=== PATIENT | female | born 1965 | race Caucasian/White ===

== ENCOUNTER → 2016-12-22 | Outpatient (CLI) | payer OTHER ==
[~2016-12-22] MED LIST: CLARITIN10 MG PO; COZAAR100 MG PO; ENBREL50 MG/ML SC; FIORICET 325 MG1 TAB PO; IMITREX; IRON; MULTIVITAMIN FO1 CAP PO; OMEPRAZOLE; PREDNISONE5 MG PO; PRILOSEC20 MG PO; PROGRAF; VASOTEC2.5 MG PO; VITAMINS
== END | disposition home or self-care (01) ==
LOC: US 13:54
DX: E04.1 Nontoxic single thyroid nodule (principal)

== ENCOUNTER → 2017-06-30 | Outpatient (CLI) | payer MEDICARE ==
[2017-06-30 09:14] LABS: BASO # 0.1 10*3/uL (0.0-0.1); BASO % 1.2 % (0.0-1.0); EOS # 0.2 10*3/uL (0.0-0.4); EOS % 5.2 % (1.0-4.0); HEMATOCRIT 37.8 % (37.0-47.0); HEMOGLOBIN 12.4 g/dl (12.0-16.0); LYMPH # 1.4 10*3/uL (1.3-4.4); LYMPH % 32.4 % (27.0-41.0); MEAN CELL VOLUME 92.4 fl (81.0-99.0); MEAN CORPUSCULAR HGB 30.3 pg (27.0-31.0); MEAN CORPUSCULAR HGB CONC 32.8 g/dl (33.0-37.0); MEAN PLATELET VOLUME 9.3 fl (9.6-12.3); MONO # 0.3 10*3/uL (0.1-1.0); MONO % 6.2 % (3.0-9.0); NEUT # 2.3 10*3/uL (2.3-7.9); NEUT % 54.8 % (47.0-73.0); PLATELET COUNT AUTOMATED 263 10*3/uL (130-400); RED BLOOD COUNT 4.09 10*6/uL (4.10-5.10); RED CELL DISTRI WIDTH 12.1 % (0-14.5); WHITE BLOOD COUNT 4.2 10*3/uL (4.8-10.8)
[2017-06-30 09:43] LABS: ALBUMIN 3.6 gm/dl (3.1-4.5); CREATININE 1.7 mg/dL (0.55-1.02); POTASSIUM 4.6 mmol/L (3.5-5.1); TOTAL PROTEIN 7.5 gm/dL (6.4-8.2)
[2017-07-01 10:04] LABS: CREATININE,URINE 66.7 mg/dL (Not Estab.); MICRO ALBUMIN/CRE RATIO 1739.9 (0.0-30.0)
== END | disposition home or self-care (01) ==
LOC: LAB 08:50
DX: Z01.89 Encounter for other specified special examinations (principal); M08.00 Unspecified juvenile rheumatoid arthritis of unspecified site; I12.9 Hypertensive chronic kidney disease with stage 1 through stage 4 chronic kidney disease, or unspecified chronic kidney disease; N18.3 Chronic kidney disease, stage 3 (moderate); Z96.642 Presence of left artificial hip joint

== ENCOUNTER → 2017-07-28 | Outpatient (CLI) | payer MEDICARE ==
[2017-07-29 05:06] LABS: RBC, FOLATE HEMATOCRIT 34.9 % (34.0-46.6)
== END | disposition home or self-care (01) ==
LOC: LAB 15:12
PROVIDERS: Internal Medicine
DX: N18.3 Chronic kidney disease, stage 3 (moderate) (principal); R89.9 Unspecified abnormal finding in specimens from other organs, systems and tissues; R80.1 Persistent proteinuria, unspecified; E78.00 Pure hypercholesterolemia, unspecified

== ENCOUNTER → 2017-08-11 | Outpatient (CLI) | payer MEDICARE ==
[2017-08-11 13:27] LABS: BILIRUBIN NEGATIVE (NEGATIVE); BLOOD 2+ (NEGATIVE); CLARITY CLEAR (CLEAR); COLOR YELLOW (YELLOW); GLUCOSE NEGATIVE (NEGATIVE); KETONE NEGATIVE (NEGATIVE); LEUKO ESTERASE NEGATIVE (NEGATIVE); NITRITE NEGATIVE (NEGATIVE); UROBILINOGEN 0.2 E.U./dl (0.2-1.0)
[2017-08-11 13:30] LABS: HEMATOCRIT 32.3 % (37.0-47.0); HEMOGLOBIN 10.8 g/dl (12.0-16.0)
[2017-08-11 13:39] LABS: WBC 0-2 wbc/hpf (0-5)
[2017-08-11 13:55] LABS: CREATININE 1.61 mg/dL (0.55-1.02); PHOSPHOROUS 3.9 mg/dL (2.5-4.9); POTASSIUM 4.6 mmol/L (3.5-5.1)
[2017-08-11 15:58] LABS: VITAMIN D, 25-HYDROXY 80.3 ng/mL (30-100)
[2017-08-11 15:59] LABS: PTH INTACT 96.6 pg/mL (14.0-72.0)
[2017-08-12 09:08] LABS: CREATININE,URINE 35.4 mg/dL (Not Estab.); MICRO ALBUMIN/CRE RATIO 2211.6 (0.0-30.0)
== END | disposition home or self-care (01) ==
LOC: LAB 12:46
PROVIDERS: Internal Medicine Nephrology
DX: N18.3 Chronic kidney disease, stage 3 (moderate) (principal); Z79.899 Other long term (current) drug therapy

== ENCOUNTER → 2017-08-28 | Outpatient (CLI) | payer MEDICARE ==
[2017-08-28 10:01] LABS: ALBUMIN 3.6 gm/dl (3.1-4.5); POTASSIUM 4.7 mmol/L (3.5-5.1)
[2017-08-28 10:11] LABS: CREATININE 1.79 mg/dL (0.55-1.02); TOTAL PROTEIN 7.3 gm/dL (6.4-8.2)
[2017-08-29 10:05] LABS: MICRO ALBUMIN/CRE RATIO 1093.5 (0.0-30.0)
== END | disposition home or self-care (01) ==
LOC: LAB 09:02
PROVIDERS: Internal Medicine Nephrology
DX: E78.2 Mixed hyperlipidemia (principal); N18.3 Chronic kidney disease, stage 3 (moderate); R89.9 Unspecified abnormal finding in specimens from other organs, systems and tissues; N28.9 Disorder of kidney and ureter, unspecified

== ENCOUNTER → 2017-10-20 | Outpatient (CLI) | payer MEDICARE | END | disposition home or self-care (01) | LOC: US 09:26 | DX: N13.30 Unspecified hydronephrosis (principal); N18.3 Chronic kidney disease, stage 3 (moderate) ==

== ENCOUNTER → 2017-11-13 | Outpatient (CLI) | payer MEDICARE ==
[2017-11-13 12:57] LABS: CREATININE 1.98 mg/dL (0.55-1.02); POTASSIUM 4.6 mmol/L (3.5-5.1)
[2017-11-14 10:03] LABS: CREATININE,URINE 49.9 mg/dL (Not Estab.); MICRO ALBUMIN/CRE RATIO 1624.4 (0.0-30.0)
== END | disposition home or self-care (01) ==
LOC: LAB 11:50
PROVIDERS: Internal Medicine Nephrology
DX: N18.3 Chronic kidney disease, stage 3 (moderate) (principal)

== ENCOUNTER → 2017-12-15 | Outpatient (CLI) | payer MEDICARE | END | disposition home or self-care (01) | LOC: CT 12-13 09:00 | DX: N28.1 Cyst of kidney, acquired (principal); N13.30 Unspecified hydronephrosis; R79.89 Other specified abnormal findings of blood chemistry; N18.3 Chronic kidney disease, stage 3 (moderate); N13.9 Obstructive and reflux uropathy, unspecified; N21.1 Calculus in urethra; Z96.642 Presence of left artificial hip joint ==

== ENCOUNTER → 2018-01-05 | Outpatient (CLI) | payer MEDICARE ==
[2018-01-05 11:20] LABS: BILIRUBIN NEGATIVE (NEGATIVE); BLOOD 2+ (NEGATIVE); CLARITY CLEAR (CLEAR); COLOR YELLOW (YELLOW); GLUCOSE NEGATIVE (NEGATIVE); KETONE NEGATIVE (NEGATIVE); LEUKO ESTERASE NEGATIVE (NEGATIVE); NITRITE NEGATIVE (NEGATIVE); UROBILINOGEN 0.2 E.U./dl (0.2-1.0)
[2018-01-05 11:43] LABS: CREATININE 1.92 mg/dL (0.55-1.02); POTASSIUM 5.1 mmol/L (3.5-5.1)
[2018-01-06 09:06] LABS: CREATININE,URINE 28.6 mg/dL (Not Estab.); MICRO ALBUMIN/CRE RATIO 2087.8 (0.0-30.0)
== END | disposition home or self-care (01) ==
LOC: LAB 10:27 → US 10:30
PROVIDERS: Internal Medicine Nephrology
DX: E04.2 Nontoxic multinodular goiter (principal); E04.1 Nontoxic single thyroid nodule; N18.3 Chronic kidney disease, stage 3 (moderate); Z79.899 Other long term (current) drug therapy

== ENCOUNTER → 2018-01-08 | Outpatient (CLI) | payer MEDICARE | END | disposition home or self-care (01) | LOC: NM 11:00 | DX: N13.30 Unspecified hydronephrosis (principal); N19 Unspecified kidney failure ==

== ENCOUNTER → 2018-01-13 | Outpatient (CLI) | payer MEDICARE ==
[2018-01-13 11:29] LABS: BASO # 0.1 10*3/uL (0.0-0.1); BASO % 0.9 % (0.0-1.0); EOS # 0.1 10*3/uL (0.0-0.4); EOS % 2.5 % (1.0-4.0); HEMATOCRIT 38.3 % (37.0-47.0); HEMOGLOBIN 12.6 g/dl (12.0-16.0); LYMPH # 1.2 10*3/uL (1.3-4.4); LYMPH % 21.4 % (27.0-41.0); MEAN CELL VOLUME 92.1 fl (81.0-99.0); MEAN CORPUSCULAR HGB 30.3 pg (27.0-31.0); MEAN CORPUSCULAR HGB CONC 32.9 g/dl (33.0-37.0); MEAN PLATELET VOLUME 9.4 fl (9.6-12.3); MONO # 0.3 10*3/uL (0.1-1.0); MONO % 4.7 % (3.0-9.0); NEUT # 3.9 10*3/uL (2.3-7.9); NEUT % 70.3 % (47.0-73.0); PLATELET COUNT AUTOMATED 297 10*3/uL (130-400); RED BLOOD COUNT 4.16 10*6/uL (4.10-5.10); RED CELL DISTRI WIDTH 12.4 % (0-14.5); WHITE BLOOD COUNT 5.6 10*3/uL (4.8-10.8)
[2018-01-13 11:34] LABS: BILIRUBIN NEGATIVE (NEGATIVE); BLOOD 2+ (NEGATIVE); CLARITY CLEAR (CLEAR); COLOR YELLOW (YELLOW); GLUCOSE NEGATIVE (NEGATIVE); KETONE NEGATIVE (NEGATIVE); LEUKO ESTERASE NEGATIVE (NEGATIVE); NITRITE NEGATIVE (NEGATIVE); UROBILINOGEN 0.2 E.U./dl (0.2-1.0)
[2018-01-13 11:47] LABS: BACTERIA TRACE; EPITHELIAL CELLS 0-2; RBC 21-30 rbc/hpf (0-2); WBC 0-2 wbc/hpf (0-5)
[2018-01-13 11:59] LABS: CREATININE 2.08 mg/dL (0.55-1.02); POTASSIUM 4.3 mmol/L (3.5-5.1)
[2018-01-13 14:09] LABS: FERRITIN 100.1 ng/mL (10.0-291.0)
[2018-01-14 04:05] LABS: TOTAL PROTEIN, SERUM 7.2 g/dL (6.0-8.5)
[2018-01-14 06:35] LABS: CREATININE,URINE 80.1 mg/dL (Not Estab.); MICRO ALBUMIN/CRE RATIO 1300.1 (0.0-30.0)
[2018-01-14 07:06] LABS: COMPLEMENT C4 001834 37 mg/dL (14-44); IMMUNOGLOBULIN G, QNT 869 mg/dL (700-1600); IMMUNOGLOBULIN M, QNT 128 mg/dL (26-217); RHEUMATOID ARTHRITIS FACTOR 15.7 IU/mL (0.0-13.9)
[2018-01-15 16:10] LABS: A/G RATIO 1.1 (0.7-1.7); ALBUMIN 3.7 g/dL (2.9-4.4); ALPHA-1-GLOBULIN 0.3 g/dL (0.0-0.4); ALPHA-2-GLOBULIN 0.9 g/dL (0.4-1.0); ATYPICAL PANCA <1:20 titer (Neg:<1:20); BETA GLOBULIN 1.3 g/dL (0.7-1.3); CYTOPLASMIC (C-ANCA) <1:20 titer (Neg:<1:20); GLOBULIN, TOTAL 3.5 g/dL (2.2-3.9); M-SPIKE Not Observed g/dL (Not Observed)
[2018-01-16 16:10] LABS: ALBUMIN, URINE 82.9 % (.); ALPHA-1-GLOBULIN, URINE 4.9 % (.); ALPHA-2-GLOBULIN, URINE 3.5 % (.); BETA GLOBULIN, URINE 5.9 % (.); GAMMA GLOBULIN, URINE 2.8 % (.); M-SPIKE, % Not Observed % (Not Observed); PROTEIN,TOTAL - URINE RANDOM 137.2 mg/dL (Not Estab.)
== END | disposition home or self-care (01) ==
LOC: LAB 10:47
PROVIDERS: Internal Medicine Nephrology; Physician Assistant Medical
DX: N18.3 Chronic kidney disease, stage 3 (moderate) (principal); N13.9 Obstructive and reflux uropathy, unspecified; L65.9 Nonscarring hair loss, unspecified

== ENCOUNTER → 2018-01-24 | Outpatient (CLI) | payer MEDICARE | END | disposition home or self-care (01) | LOC: CARD 01-11 16:00 | DX: R01.1 Cardiac murmur, unspecified (principal) ==

== ENCOUNTER → 2018-01-25 | Outpatient (CLI) | payer MEDICARE ==
[~2018-01-25] MED LIST changes: +HYDROXYZINE HCL25 MG PO
== END | disposition home or self-care (01) ==
LOC: WOUNDCARE 00:26
DX: L97.822 Non-pressure chronic ulcer of other part of left lower leg with fat layer exposed (principal); I87.2 Venous insufficiency (chronic) (peripheral); I10 Essential (primary) hypertension; M08.90 Juvenile arthritis, unspecified, unspecified site

== ENCOUNTER → 2018-01-30 | Outpatient (CLI) | payer MEDICARE ==
[~2018-01-30] MED LIST changes: -HYDROXYZINE HCL25 MG PO
== END | disposition home or self-care (01) ==
LOC: US 02:36
DX: S81.802A Unspecified open wound, left lower leg, initial encounter (principal); I73.9 Peripheral vascular disease, unspecified; I83.892 Varicose veins of left lower extremity with other complications; L95.8 Other vasculitis limited to the skin; X58.XXXA Exposure to other specified factors, initial encounter; Y93.89 Activity, other specified; Y92.89 Other specified places as the place of occurrence of the external cause; Y99.8 Other external cause status

== ENCOUNTER → 2018-03-12 | Outpatient (CLI) | payer MEDICARE ==
[~2018-03-12] MED LIST changes: +HYDROXYZINE HCL25 MG PO
[2018-03-12 09:07] LABS: BASO # 0.1 10*3/uL (0.0-0.1); BASO % 1.2 % (0.0-1.0); EOS # 0.3 10*3/uL (0.0-0.4); EOS % 5.7 % (1.0-4.0); HEMATOCRIT 36.1 % (37.0-47.0); HEMOGLOBIN 11.3 g/dl (12.0-16.0); LYMPH # 1.5 10*3/uL (1.3-4.4); LYMPH % 31.3 % (27.0-41.0); MEAN CELL VOLUME 96.5 fl (81.0-99.0); MEAN CORPUSCULAR HGB 30.2 pg (27.0-31.0); MEAN CORPUSCULAR HGB CONC 31.3 g/dl (33.0-37.0); MEAN PLATELET VOLUME 9.3 fl (9.6-12.3); MONO # 0.3 10*3/uL (0.1-1.0); MONO % 6.1 % (3.0-9.0); NEUT # 2.7 10*3/uL (2.3-7.9); NEUT % 55.3 % (47.0-73.0); PLATELET COUNT AUTOMATED 288 10*3/uL (130-400); RED BLOOD COUNT 3.74 10*6/uL (4.10-5.10); RED CELL DISTRI WIDTH 12.3 % (0-14.5); WHITE BLOOD COUNT 4.9 10*3/uL (4.8-10.8)
[2018-03-12 09:17] LABS: BILIRUBIN NEGATIVE (NEGATIVE); BLOOD 2+ (NEGATIVE); CLARITY CLEAR (CLEAR); COLOR YELLOW (YELLOW); GLUCOSE NEGATIVE (NEGATIVE); KETONE NEGATIVE (NEGATIVE); LEUKO ESTERASE TRACE (NEGATIVE); NITRITE NEGATIVE (NEGATIVE); SPECIFIC GRAVITY <= 1.005 (1.005-1.030); UROBILINOGEN 0.2 E.U./dl (0.2-1.0)
[2018-03-12 09:33] LABS: ALBUMIN 3.2 gm/dl (3.1-4.5); POTASSIUM 4.8 mmol/L (3.5-5.1)
[2018-03-12 09:36] LABS: CREATININE 2.11 mg/dL (0.55-1.02); TOTAL PROTEIN 7.3 gm/dL (6.4-8.2)
[2018-03-12 10:38] LABS: RBC 51-100 rbc/hpf (0-2)
[2018-03-12 10:39] LABS: BACTERIA TRACE
[2018-03-13 10:07] LABS: CREATININE,URINE 28.5 mg/dL (Not Estab.); MICRO ALBUMIN/CRE RATIO 1907.7 (0.0-30.0)
== END | disposition home or self-care (01) ==
LOC: LAB 08:05
PROVIDERS: Internal Medicine; Internal Medicine Nephrology
DX: Z13.220 Encounter for screening for lipoid disorders (principal); I12.9 Hypertensive chronic kidney disease with stage 1 through stage 4 chronic kidney disease, or unspecified chronic kidney disease; N18.3 Chronic kidney disease, stage 3 (moderate); E78.00 Pure hypercholesterolemia, unspecified; G47.33 Obstructive sleep apnea (adult) (pediatric); M08.00 Unspecified juvenile rheumatoid arthritis of unspecified site; R80.1 Persistent proteinuria, unspecified; Z99.89 Dependence on other enabling machines and devices

== ENCOUNTER 2018-03-18 18:26 | Emergency (ER) | payer MEDICARE ==
[~2018-03-18] VITALS: Ht 162.5 cm; Wt 52.2 kg
[~2018-03-18 18:26] MED LIST changes: -HYDROXYZINE HCL25 MG PO
[2018-03-18 18:59] LABS: BASO # 0.1 10*3/uL (0.0-0.1); BASO % 1.1 % (0.0-1.0); EOS # 0.2 10*3/uL (0.0-0.4); EOS % 3.4 % (1.0-4.0); HEMATOCRIT 32.6 % (37.0-47.0); HEMOGLOBIN 10.8 g/dl (12.0-16.0); LYMPH # 1.4 10*3/uL (1.3-4.4); LYMPH % 24.6 % (27.0-41.0); MEAN CELL VOLUME 93.1 fl (81.0-99.0); MEAN CORPUSCULAR HGB 30.9 pg (27.0-31.0); MEAN CORPUSCULAR HGB CONC 33.1 g/dl (33.0-37.0); MEAN PLATELET VOLUME 9.1 fl (9.6-12.3); MONO # 0.4 10*3/uL (0.1-1.0); MONO % 7.7 % (3.0-9.0); NEUT # 3.5 10*3/uL (2.3-7.9); NEUT % 63.2 % (47.0-73.0); PLATELET COUNT AUTOMATED 273 10*3/uL (130-400); RED CELL DISTRI WIDTH 12.3 % (0-14.5); WHITE BLOOD COUNT 5.6 10*3/uL (4.8-10.8)
[2018-03-18 19:08] LABS: INTERNATIONAL NORM RATIO 0.9 (2.0-3.5)
[2018-03-18 19:17] LABS: ALBUMIN 3.2 gm/dl (3.1-4.5); ALKALINE PHOSPHATASE 74 U/L (45-117); BUN 32 mg/dl (7-24); CHLORIDE 106 mmol/L (98-107); CREATININE 2.05 mg/dL (0.55-1.02); POTASSIUM 4.7 mmol/L (3.5-5.1); SGOT/AST 15 IU/L (3-35); SGPT/ALT 15 U/L (12-78); SODIUM 137 mmol/L (136-145); TOTAL PROTEIN 7.1 gm/dL (6.4-8.2)
[2018-03-18 19:21] LABS: TROPONIN I < 0.015 ng/ml (<0.045)
[2018-03-18] MEDS ORDERED: HYDROXYZINE HCL25 MG PO ×2 (20:26→20:41)
== END 2018-03-18 20:38 | disposition home or self-care (01) ==
LOC: ED 18:26
PROVIDERS: Physician Assistant
DX: I10 Essential (primary) hypertension (principal); F43.0 Acute stress reaction; Z79.899 Other long term (current) drug therapy

== ENCOUNTER → 2018-06-20 | Outpatient (CLI) | payer MEDICARE ==
[~2018-06-20] MED LIST changes: +HYDROXYZINE HCL25 MG PO
== END | disposition home or self-care (01) ==
LOC: US 07:30
DX: Z13.89 Encounter for screening for other disorder (principal); I87.1 Compression of vein; N13.30 Unspecified hydronephrosis; N94.89 Other specified conditions associated with female genital organs and menstrual cycle; N18.3 Chronic kidney disease, stage 3 (moderate); I77.6 Arteritis, unspecified; D68.61 Antiphospholipid syndrome

== ENCOUNTER → 2018-09-28 | Outpatient (CLI) | payer MEDICARE ==
[2018-09-28 11:33] LABS: BILIRUBIN NEGATIVE (NEGATIVE); BLOOD 2+ (NEGATIVE); CLARITY CLEAR (CLEAR); COLOR YELLOW (YELLOW); GLUCOSE NEGATIVE (NEGATIVE); KETONE NEGATIVE (NEGATIVE); LEUKO ESTERASE NEGATIVE (NEGATIVE); NITRITE NEGATIVE (NEGATIVE); PH 6.5 (5.0-9.0); SPECIFIC GRAVITY 1.015 (1.005-1.030); UROBILINOGEN 0.2 E.U./dl (0.2-1.0)
[2018-09-28 11:35] LABS: BASO # 0.1 10*3/uL (0.0-0.1); BASO % 1.3 % (0.0-1.0); EOS # 0.2 10*3/uL (0.0-0.4); EOS % 5.3 % (1.0-4.0); HEMOGLOBIN 11.2 g/dl (12.0-16.0); LYMPH # 1.2 10*3/uL (1.3-4.4); LYMPH % 30.3 % (27.0-41.0); MEAN CELL VOLUME 95.4 fl (81.0-99.0); MEAN CORPUSCULAR HGB 30.5 pg (27.0-31.0); MEAN PLATELET VOLUME 9.4 fl (9.6-12.3); MONO # 0.3 10*3/uL (0.1-1.0); MONO % 7.8 % (3.0-9.0); NEUT # 2.2 10*3/uL (2.3-7.9); PLATELET COUNT AUTOMATED 271 10*3/uL (130-400); RED BLOOD COUNT 3.67 10*6/uL (4.10-5.10); RED CELL DISTRI WIDTH 12.6 % (0-14.5)
[2018-09-28 11:40] LABS: URINE CREATININE RANDOM 51.4 mg/dL
[2018-09-28 11:44] LABS: EPITHELIAL CELLS 0-2; RBC 31-40 rbc/hpf (0-2)
[2018-09-28 11:58] LABS: ALBUMIN 3.5 gm/dl (3.1-4.5); CREATININE 2.26 mg/dL (0.55-1.02); PHOSPHOROUS 4.4 mg/dL (2.5-4.9); POTASSIUM 4.8 mmol/L (3.5-5.1)
[2018-09-28 12:40] LABS: FERRITIN 86.3 ng/mL (10.0-291.0)
== END | disposition home or self-care (01) ==
LOC: LAB 10:50
PROVIDERS: Internal Medicine Nephrology
DX: N18.4 Chronic kidney disease, stage 4 (severe) (principal); D64.9 Anemia, unspecified; R80.9 Proteinuria, unspecified

== ENCOUNTER → 2019-05-20 | Outpatient (CLI) | payer OTHER ==
--- NOTE | ~2019-05-20 | EKG ---
[place], [place] ELECTROCARDIOGRAM REPORT NAME: LIZZIE POSYE UNIT #: [id number] ROOM: DOCTOR: EPIPHANY DRAFT REPORT BIRTHDATE: [birth year] [facility] Test Date: 2019-05-20 Test Time: 11:46:40 Pat Name: LIZZIE POSEY Department: Room: Gender: F Fondant Machine Operator: Amanda Rivera : 1965 Requested By: MARII PRYOR Order Number: [id number] Reading MD: Grant Galeano MD Measurements Intervals [place] Rate: 66 P: 55 CT: 144 QRS: 40 QRSD: 84 T: 42 QT: 406 QTc: 426 Interpretive Statements Sinus rhythm Consider left atrial enlargement Low voltage, precordial leads Electronically Signed On 05-20-2019 10:32:10 PDT by Grant Galeano MD CM:EKGRPT:ELECTROCARDIOGRAM REPORT [id number] MARII PRYOR EPIPHANY DRAFT REPORT MARII PRYOR
== END | disposition home or self-care (01) ==
LOC: RAD 11:14
DX: Z01.818 Encounter for other preprocedural examination (principal); N18.6 End stage renal disease

== ENCOUNTER → 2019-07-30 | Outpatient (CLI) | payer MEDICARE ==
[2019-07-30 14:15] LABS: BILIRUBIN NEGATIVE (NEGATIVE); BLOOD 2+ (NEGATIVE); CLARITY SL CLOUDY (CLEAR); COLOR YELLOW (YELLOW); GLUCOSE NEGATIVE (NEGATIVE); KETONE NEGATIVE (NEGATIVE); LEUKO ESTERASE NEGATIVE (NEGATIVE); NITRITE NEGATIVE (NEGATIVE); UROBILINOGEN 0.2 E.U./dl (0.2-1.0)
[2019-07-30 14:21] LABS: BASO # 0.1 10*3/uL (0.0-0.1); BASO % 1.3 % (0.0-1.0); EOS # 0.2 10*3/uL (0.0-0.4); EOS % 2.8 % (1.0-4.0); HEMATOCRIT 34.1 % (37.0-47.0); HEMOGLOBIN 10.9 g/dl (12.0-16.0); LYMPH # 1.3 10*3/uL (1.3-4.4); LYMPH % 24.3 % (27.0-41.0); MEAN CELL VOLUME 95.8 fl (81.0-99.0); MEAN CORPUSCULAR HGB 30.6 pg (27.0-31.0); MEAN PLATELET VOLUME 9.7 fl (9.6-12.3); MONO # 0.4 10*3/uL (0.1-1.0); MONO % 7.3 % (3.0-9.0); NEUT # 3.3 10*3/uL (2.3-7.9); PLATELET COUNT AUTOMATED 261 10*3/uL (130-400); RED BLOOD COUNT 3.56 10*6/uL (4.10-5.10); RED CELL DISTRI WIDTH 12.3 % (0-14.5); WHITE BLOOD COUNT 5.3 10*3/uL (4.8-10.8)
[2019-07-30 14:24] LABS: URINE CREATININE RANDOM 41.3 mg/dL
[2019-07-30 14:41] LABS: ALBUMIN 3.7 gm/dl (3.1-4.5); CREATININE 3.07 mg/dL (0.55-1.02); PHOSPHOROUS 4.2 mg/dL (2.5-4.9); POTASSIUM 5.1 mmol/L (3.5-5.1)
[2019-07-30 14:51] LABS: RBC 21-30 rbc/hpf (0-2)
== END | disposition home or self-care (01) ==
LOC: LAB 13:52
PROVIDERS: Internal Medicine Nephrology
DX: I12.9 Hypertensive chronic kidney disease with stage 1 through stage 4 chronic kidney disease, or unspecified chronic kidney disease (principal); D64.9 Anemia, unspecified; N18.4 Chronic kidney disease, stage 4 (severe); R80.9 Proteinuria, unspecified

== ENCOUNTER → 2019-10-23 | Outpatient (CLI) | payer OTHER ==
[2019-10-23 14:10] LABS: BASO % 0.4 % (0.0-1.0); EOS # 0.2 10*3/uL (0.0-0.4); EOS % 2.4 % (1.0-4.0); HEMATOCRIT 32.3 % (37.0-47.0); HEMOGLOBIN 10.6 g/dl (12.0-16.0); LYMPH # 1.3 10*3/uL (1.3-4.4); LYMPH % 17.5 % (27.0-41.0); MEAN CELL VOLUME 94.4 fl (81.0-99.0); MEAN CORPUSCULAR HGB CONC 32.8 g/dl (33.0-37.0); MEAN PLATELET VOLUME 9.3 fl (9.6-12.3); MONO # 0.4 10*3/uL (0.1-1.0); MONO % 5.6 % (3.0-9.0); NEUT # 5.3 10*3/uL (2.3-7.9); NEUT % 73.8 % (47.0-73.0); PLATELET COUNT AUTOMATED 258 10*3/uL (130-400); RED BLOOD COUNT 3.42 10*6/uL (4.10-5.10); RED CELL DISTRI WIDTH 12.2 % (0-14.5); WHITE BLOOD COUNT 7.2 10*3/uL (4.8-10.8)
[2019-10-23 14:37] LABS: CREATININE 3.56 mg/dL (0.55-1.02)
[2019-10-23 14:39] LABS: ALBUMIN 3.6 gm/dl (3.1-4.5); CREATININE 3.56 mg/dL (0.55-1.02); PHOSPHOROUS 5.2 mg/dL (2.5-4.9); POTASSIUM 5.1 mmol/L (3.5-5.1)
[2019-10-23 15:13] LABS: PTH INTACT 106.6 pg/mL (18.5-88.0); VITAMIN D, 25-HYDROXY 25.8 ng/mL (30-100)
== END | disposition home or self-care (01) ==
LOC: LAB 13:42
PROVIDERS: Anesthesiology Pain Medicine; Internal Medicine Nephrology
DX: I11.0 Hypertensive heart disease with heart failure (principal); N18.4 Chronic kidney disease, stage 4 (severe); D64.9 Anemia, unspecified

== ENCOUNTER → 2019-11-26 | Outpatient (CLI) | payer OTHER ==
[2019-11-26 13:47] LABS: CREATININE 3.97 mg/dL (0.55-1.02)
== END | disposition home or self-care (01) ==
LOC: LAB 12:58
PROVIDERS: Anesthesiology Pain Medicine
DX: N18.9 Chronic kidney disease, unspecified (principal)

== ENCOUNTER → 2020-01-24 | Outpatient (CLI) | payer OTHER ==
[2020-01-24 12:44] LABS: BASO # 0.1 10*3/uL (0.0-0.1); BASO % 1.1 % (0.0-1.0); EOS # 0.2 10*3/uL (0.0-0.4); EOS % 4.8 % (1.0-4.0); LYMPH # 1.3 10*3/uL (1.3-4.4); LYMPH % 29.2 % (27.0-41.0); MEAN CELL VOLUME 95.8 fl (81.0-99.0); MEAN CORPUSCULAR HGB 31.4 pg (27.0-31.0); MEAN CORPUSCULAR HGB CONC 32.8 g/dl (33.0-37.0); MEAN PLATELET VOLUME 9.2 fl (9.6-12.3); MONO # 0.3 10*3/uL (0.1-1.0); MONO % 6.3 % (3.0-9.0); NEUT # 2.7 10*3/uL (2.3-7.9); NEUT % 58.2 % (47.0-73.0); PLATELET COUNT AUTOMATED 248 10*3/uL (130-400); RED BLOOD COUNT 3.34 10*6/uL (4.10-5.10); WHITE BLOOD COUNT 4.6 10*3/uL (4.8-10.8)
[2020-01-24 13:09] LABS: ALBUMIN 3.6 gm/dl (3.1-4.5); CREATININE 4.13 mg/dL (0.55-1.02); PHOSPHOROUS 5.2 mg/dL (2.5-4.9); POTASSIUM 4.8 mmol/L (3.5-5.1); URIC ACID 6.1 mg/dL (2.6-6.0)
[2020-01-24 13:57] LABS: VITAMIN D, 25-HYDROXY 56.9 ng/mL (30-100)
[2020-01-24 14:30] LABS: PTH INTACT 77.8 pg/mL (18.5-88.0)
== END | disposition home or self-care (01) ==
LOC: LAB 12:18
PROVIDERS: Internal Medicine Nephrology
DX: I12.0 Hypertensive chronic kidney disease with stage 5 chronic kidney disease or end stage renal disease (principal); N18.5 Chronic kidney disease, stage 5

== ENCOUNTER → 2020-02-15 | Outpatient (CLI) | payer OTHER ==
[2020-02-15 13:46] LABS: BASO % 0.6 % (0.0-1.0); EOS # 0.2 10*3/uL (0.0-0.4); EOS % 4.3 % (1.0-4.0); HEMATOCRIT 29.7 % (37.0-47.0); LYMPH # 1.3 10*3/uL (1.3-4.4); LYMPH % 25.3 % (27.0-41.0); MEAN CELL VOLUME 95.2 fl (81.0-99.0); MEAN CORPUSCULAR HGB 31.1 pg (27.0-31.0); MEAN CORPUSCULAR HGB CONC 32.7 g/dl (33.0-37.0); MEAN PLATELET VOLUME 9.2 fl (9.6-12.3); MONO # 0.3 10*3/uL (0.1-1.0); MONO % 6.6 % (3.0-9.0); NEUT # 3.2 10*3/uL (2.3-7.9); NEUT % 62.8 % (47.0-73.0); PLATELET COUNT AUTOMATED 211 10*3/uL (130-400); RED BLOOD COUNT 3.12 10*6/uL (4.10-5.10); WHITE BLOOD COUNT 5.1 10*3/uL (4.8-10.8)
[2020-02-15 13:58] LABS: ALBUMIN 3.4 gm/dl (3.1-4.5); CREATININE 4.81 mg/dL (0.55-1.02); POTASSIUM 4.9 mmol/L (3.5-5.1)
== END | disposition home or self-care (01) ==
LOC: LAB 13:02
PROVIDERS: Internal Medicine Nephrology
DX: N18.5 Chronic kidney disease, stage 5 (principal)

== ENCOUNTER 2020-03-06 19:39 | Inpatient (IN) | payer OTHER ==
[~2020-03-06] VITALS: Ht 162.6 cm; Wt 57.4 kg
[2020-03-06 20:12] VITALS: BP 166/82
[2020-03-06 20:54] LABS: BASO # 0.1 10*3/uL (0.0-0.1); BASO % 0.6 % (0.0-1.0); EOS # 0.1 10*3/uL (0.0-0.4); EOS % 1.4 % (1.0-4.0); HEMATOCRIT 29.8 % (37.0-47.0); LYMPH # 0.9 10*3/uL (1.3-4.4); LYMPH % 10.4 % (27.0-41.0); MEAN CELL VOLUME 95.5 fl (81.0-99.0); MEAN CORPUSCULAR HGB 31.7 pg (27.0-31.0); MEAN CORPUSCULAR HGB CONC 33.2 g/dl (33.0-37.0); MEAN PLATELET VOLUME 9.5 fl (9.6-12.3); MONO # 0.4 10*3/uL (0.1-1.0); MONO % 4.9 % (3.0-9.0); NEUT # 7.5 10*3/uL (2.3-7.9); NEUT % 82.5 % (47.0-73.0); PLATELET COUNT AUTOMATED 236 10*3/uL (130-400); RED BLOOD COUNT 3.12 10*6/uL (4.10-5.10); RED CELL DISTRI WIDTH 12.7 % (0-14.5)
[2020-03-06 21:06] LABS: ACT PARTIAL THROMBO TIME 24.2 SECONDS (20.0-32.1); INTERNATIONAL NORM RATIO 0.9 (2.0-3.5)
--- NOTE | 2020-03-06 21:07 | NUR ---
PT AWARE URINE NEEDED FOR COLLECTION
[2020-03-06 21:10] LABS: ALBUMIN 3.2 gm/dl (3.1-4.5); ALKALINE PHOSPHATASE 38 U/L (45-117); BUN 59 mg/dl (7-24); CHLORIDE 108 mmol/L (98-107); LIPASE 264 U/L (73-393); POTASSIUM 4.2 mmol/L (3.5-5.1); SGOT/AST 13 IU/L (3-35); SGPT/ALT 17 U/L (12-78); SODIUM 137 mmol/L (136-145); TROPONIN I < 0.015 ng/ml (<0.045)
[2020-03-06 21:44] VITALS: BP 142/68
--- NOTE | 2020-03-06 21:44 | NUR ---
PT REQUESTING ADDITIONAL NAUSEA MEDICATION, PROVIDER NOTIFIED.
--- NOTE | 2020-03-06 22:29 | NUR ---
SPOKE WITH WANDA REGARDING ADDITIONAL PAIN MEDICATION ORDER AND PT CURRENT MENTAL STATUS. PT IS ORIENTED BUT DROWSY. PT REFUSING TO DRINK CONTRAST AT THIS TIME DUE TO "BEING TO TIRED TO OPEN MY EYES AND DRINK ANYTHING". WANDA STATES TO ASSESS PT AND ADMINISTER DILAUDID IF INDICATED.
--- NOTE | 2020-03-06 23:03 | NUR ---
PT REQUESTING TO "GET CT OVER WITH SO SHE CAN RELAX AND HAVE PAIN MEDICATION" THIS RN WILL CALL CT, PT REFUSING TO DRINK ADDITIONAL CONTRAST AT THIS TIME. PT DRANK APPROX 200 ML.
--- NOTE | 2020-03-06 23:08 | NUR ---
PT TO BATHROOM, URINE CUP PROVIDED. PT AMBULATES WITH STEADY GAIT.
--- NOTE | 2020-03-06 23:08 | NUR ---
CT AT BEDSIDE
[2020-03-06 23:48] VITALS: BP 164/78
[2020-03-07 00:20] LABS: BILIRUBIN NEGATIVE (NEGATIVE); BLOOD 2+ (NEGATIVE); CLARITY CLEAR (CLEAR); COLOR YELLOW (YELLOW); GLUCOSE NEGATIVE (NEGATIVE); KETONE TRACE (NEGATIVE); LEUKO ESTERASE TRACE (NEGATIVE); NITRITE NEGATIVE (NEGATIVE); PH 7.1 (5.0-9.0); UROBILINOGEN 0.2 E.U./dl (0.2-1.0)
[2020-03-07 00:22] LABS: RBC 16-20 rbc/hpf (0-2); WBC 21-30 wbc/hpf (0-5)
[2020-03-07 01:53] VITALS: BP 134/68
--- NOTE | 2020-03-07 02:18 | NUR ---
NOTIFIED DR MAYNARD OF PT PAIN 07/04, REPORTS WILL ORDER ONE TIME DOSE OF PAIN MEDICATION
--- NOTE | 2020-03-07 02:34 | NUR ---
UPDATED PT AND FAMILY THAT ED MD IS WORKING ON GETTING HER ADDITIONAL ONE TMIE PAIN MED AND NAUSEA DOSE WHILE PT IS AWAITING BED ON FLOOR. RNS UNABLE TO PULL MEDS THAT ARE ORDERED FOR ADMISSION. PT AND FAMILY AGREEABLE TO PLAN AND VERBALIZE UNDERSTANDING.
[2020-03-07 03:42] VITALS: BP 168/82
--- NOTE | 2020-03-07 03:42 | NUR ---
Time: 341 A 54 year old FEMALE admitted to under services of QUINN BEDOLLA DO. Pt. arrived via bed from ER. Chief complaint: SMALL BOWEL OBSTRUCTION. JUAN RODRIGUEZ
[2020-03-07] MEDS ORDERED: AMLODIPINE BESY10 MG PO (04:09)
--- NOTE | 2020-03-07 04:12 | NUR ---
DR. DOWNING INFORMED THAT HOME MEDS ARE VERIFIED. INFORMED THAT PATIENT DID NOT HAVE BLOOFD PRESSURE MEDS LAST NIGHT, BP OF 168/82 MANUAL, STATED THAT WAS OK. PATIENT WAS ASLO REQUESTING TO HAVE ICE CHIPS, DOCTOR STATED THAT WAS FINE BUT NOTHING MORE.
--- NOTE | 2020-03-07 04:46 | NUR ---
ZOFRAN APPEARS EFFECTIVE. PATIENT RESTING QUIETLY, EYES CLOSED. NO DISTRESS NOTED. CALL LIGHT WITHIN REACH
--- NOTE | 2020-03-07 05:32 | NUR ---
MADE AWARE THAT PATIENT IS NOT AWARE IF HER PROCEDURE OCCURED AT [facility] OR [facility]. [facility] WILL NOT ACCEPT OUR REQUEST TO OBTAINED MEDICAL RECORD UNTIL T HAS A SPECIFIC HOSPITAL AND A SPECIFIC TIME FRAME. DOCTOR STATED THAT DAY TURN WILL HAVE TO DIVE FURTHER IN TO HER HISTORY
--- NOTE | 2020-03-07 05:38 | NUR ---
WAS CALLED AND CONSULT BY ER PER DOCUMENTATION. NOTED THAT WILL SEE PATIENT.
--- NOTE | 2020-03-07 05:53 | NUR ---
PER AIDE, PATIENT WAS INCONT OF URINE. BRIEF WAS SATURATED.
--- NOTE | 2020-03-07 06:35 | NUR ---
INFORMED OF CONSULT. INFORMED OF PATIENT STATUS, HISTORY AND TEST RESULTS. STATED TO ORDER GASTROGRAFIN AND SMALL BOWEL FOLLOW THROUGH.
[2020-03-07 07:06] LABS: MEAN CELL VOLUME 96.3 fl (81.0-99.0); MEAN CORPUSCULAR HGB 30.7 pg (27.0-31.0); MEAN CORPUSCULAR HGB CONC 31.9 g/dl (33.0-37.0); MEAN PLATELET VOLUME 9.6 fl (9.6-12.3); PLATELET COUNT AUTOMATED 239 10*3/uL (130-400); RED BLOOD COUNT 3.22 10*6/uL (4.10-5.10); RED CELL DISTRI WIDTH 12.8 % (0-14.5); WHITE BLOOD COUNT 11.1 10*3/uL (4.8-10.8)
[2020-03-07 07:39] LABS: ALBUMIN 2.8 gm/dl (3.1-4.5); CREATININE 4.74 mg/dL (0.55-1.02); POTASSIUM 4.4 mmol/L (3.5-5.1); TOTAL PROTEIN 6.5 gm/dL (6.4-8.2)
[2020-03-07 07:45] LABS: FREE T4 1.2 ng/dl (0.76-1.46); THYROID STIM HORMONE (HS) 0.606 uIU/ml (0.358-4.75)
[2020-03-07 07:50] LABS: PLATELET SUFFICIENCY NORMAL (NORMAL); ROULEAUX SLIGHT; SCHISTOCYTES FEW; TOTAL CELLS COUNTED 100 #CELLS
[2020-03-07 07:51] LABS: BURR CELLS FEW; OVALOCYTES FEW
[2020-03-07 07:59] LABS: VITAMIN D, 25-HYDROXY 24.8 ng/mL (30-100)
[2020-03-07 08:00] VITALS: BP 138/75
--- NOTE | 2020-03-07 09:30 | NUR ---
AT BEDSIDE. #16 NGT INSERTED IN LEFT NARE BY . NGT PLACED TO CONTINUOUS SUCTION WITH 100CC IMMEDIATE DARK GREEN FLUID. NGT THEN PLACED TO LIS.
--- NOTE | 2020-03-07 10:30 | NUR ---
PATIENT C/O NAUSEA AND NGT BOTHERING HER THROAT. "ITS MAKING ME GAG". MEDICATED WITH ZOFRAN AND BENZOCAINE SPRAY PER PRN ORDERS. WILL CONTINUE TO MONITOR.
--- NOTE | 2020-03-07 10:52 | NUR ---
PATIENT C/O INCREASE ABDOMINAL PAIN. MEDICATED WITH DILAUDID 0.5MG IV PER PRN ORDER. WILL CONTINUE TO MONITOR.
--- NOTE | 2020-03-07 11:30 | NUR ---
MEDICATED WITH REGLAN PER ONE TIME ORDER FOR CONTINUED C/O NAUSEA. WILL CONTINUE TO MONITOR.
--- NOTE | 2020-03-07 11:45 | NUR ---
KYLEIGH THRASHER. CALLED REGARDING PATIENT CONTINUES TO C/O PAIN. STATES HE WILL LOOK AT IT.
--- NOTE | 2020-03-07 12:21 | NUR ---
MEDICATED WITH DILAUDID 0.5MG IV PER ONE TIME ORDER FOR CONTINUED C/O PAIN. WILL CONTINUE TO MONITOR.
--- NOTE | 2020-03-07 13:15 | NUR ---
PATIENT RESTING WITH EYES CLOSED. NO FURTHER C/O PAIN AT THIS TIME. DILAUDID EFFECTIVE.
[2020-03-07 16:00] VITALS: BP 147/85
--- NOTE | 2020-03-07 19:30 | NUR ---
PATIENTS QUESTIONS AND CONCERNS ANSWERED. ALL NEEDS MET AT THIS TIME.
[2020-03-07 20:00] VITALS: BP 166/82
[2020-03-08] VITALS: BP 169/79
--- NOTE | 2020-03-08 05:39 | NUR ---
PATIENT MEDICATED WITH LIDOCAINE SPRAY FOR THROAT IRRITATION. WILL MONITOR
--- NOTE | 2020-03-08 06:00 | NUR ---
NG TUBE NOTED TO BE PROPERLY PLACED AT THIS TIME ON LIS. 250CC OF OUTPUT DOCUMENTED FOR THIS NURSE SHIFT. PATIENT STATES SHE FEELS BETTER, JUST THROAT IRRITATION FROM NG TUBE.
[2020-03-08 06:16] LABS: BASO % 0.5 % (0.0-1.0); EOS # 0.1 10*3/uL (0.0-0.4); HEMATOCRIT 29.4 % (37.0-47.0); LYMPH # 0.6 10*3/uL (1.3-4.4); LYMPH % 11.2 % (27.0-41.0); MEAN CELL VOLUME 96.7 fl (81.0-99.0); MEAN CORPUSCULAR HGB 31.3 pg (27.0-31.0); MEAN CORPUSCULAR HGB CONC 32.3 g/dl (33.0-37.0); MEAN PLATELET VOLUME 9.8 fl (9.6-12.3); MONO # 0.5 10*3/uL (0.1-1.0); NEUT # 4.5 10*3/uL (2.3-7.9); PLATELET COUNT AUTOMATED 242 10*3/uL (130-400); RED BLOOD COUNT 3.04 10*6/uL (4.10-5.10); RED CELL DISTRI WIDTH 13.2 % (0-14.5); WHITE BLOOD COUNT 5.7 10*3/uL (4.8-10.8)
[2020-03-08 06:45] LABS: ALBUMIN 2.7 gm/dl (3.1-4.5); CREATININE 4.93 mg/dL (0.55-1.02); POTASSIUM 3.9 mmol/L (3.5-5.1); TOTAL PROTEIN 6.4 gm/dL (6.4-8.2)
[2020-03-08 07:45] LABS: FERRITIN 121.9 ng/mL (10.0-291.0)
[2020-03-08 08:00] VITALS: BP 158/78
--- NOTE | 2020-03-08 08:49 | NUR ---
PER ALFREDO DOWELING MACHINE OPERATOR, OK TO ALLOW TO VISIT FOR ONE HOUR TODAY. PT INFORMED. WILL NOTIFIY SECURITY.
--- NOTE | 2020-03-08 09:37 | NUR ---
NG TUBE CLAMPED AND SUCTION TURNED OFF PER ORDERS FROM . MENU PROVIDED, INSTRUCTED ON CLEAR LIQUIDS OPTION. WILL MONITOR. CALL LIGHT IN REACH.
--- NOTE | 2020-03-08 11:33 | NUR ---
TOLERATING LIQUIDS WELL FOLLOWING NG TUBE CLAMP. DENIES NAUSEA AT THIS TIME. WILL CONTINUE TO MONITOR.
[2020-03-08 12:00] VITALS: BP 157/79
--- NOTE | 2020-03-08 12:51 | NUR ---
CONTINUES TO VOICE NO NAUSEA OR PAIN FOLLOWING CLEAR LIQUIDS/JELLO.
--- NOTE | 2020-03-08 13:51 | NUR ---
NG TUBE REMOVED PER ORDERS. TOLERATED FAIRLY WELL. CALL LIGHT IN REACH.
--- NOTE | 2020-03-08 14:41 | NUR ---
NO COMPLAINTS VOICED. OK TO STOP FLUIDS PER .
[2020-03-08 16:00] VITALS: BP 142/78
--- NOTE | 2020-03-08 16:54 | NUR ---
TOLERATING SOFT DIET. NO COMPLAINTS OF NAUSEA OR ABD PAIN.
[2020-03-08 20:00] VITALS: BP 153/72
--- NOTE | 2020-03-08 23:00 | NUR ---
PATIENT RESTING IN BED WITH NO COMPLAINTS. RESPS EASY AND REGULAR. DENIES ANY NEEDS AT THIS TIME. CALL LIGHT IN REACH.
--- NOTE | 2020-03-08 23:03 | NUR ---
24 HR chart check completed.
[2020-03-09] VITALS: BP 153/79
[2020-03-09 08:00] VITALS: BP 174/83
--- NOTE | 2020-03-09 08:49 | NUR ---
IN PT ROOM AT THIS TIME. SHE IS COMPLAINING OF A HEADACHE, SHE THINKS IT IS DUE TO NOT HAVING HER BLOOD PRESSURE MEDICATION IN THE LAST COUPLE DAYS. PRN TYLENOL PO IS GIVEN AT THIS TIME. SHE HAS NO OTHER COMPLAINTS AT THIS TIME, JUST THAT SHE IS READY TO GO HOME. CALL LIGHT WITHIN REACH, WILL CONTINUE TO MONITOR.
--- NOTE | 2020-03-09 09:00 | NUR ---
PT STATES THAT HER HEADACHE HAS DECREAED SOME SINCE TAKING THE TYLENOL. WILL CONTINUE TO MONITOR
[2020-03-09] MEDS ORDERED: LIPITOR40 MG PO (09:58)
--- NOTE | 2020-03-09 10:01 | NUR ---
DISCUSSING PT DISCHARGE. PT RECEIVED MEDS AND MONEY OUT OF WALL WHICH WAS LOCKED UP. PT SIGNED DISCHARGE PAPERS AND IV WAS TAKEN OUT. NO FURTHER QUESTIONS AT THIS TIME
--- NOTE | 2020-03-09 10:16 | NUR ---
DR KING ON THE PHONE CHECKING IN TO SEE HOW PATIENT WAS TOLDERATING HER DIET. DID UPDATE HIM THAT THE PATIENT IS GOING HOME
--- NOTE | 2020-03-09 10:18 | NUR ---
PT LEAVING FLOOR AT THIS TIME
== END 2020-03-09 10:46 | disposition home or self-care (01) | DRG 388 ==
LOC: ED 19:39 → EDHOLD 03-07 01:00 → 4E 03-07 01:00
PROVIDERS: Internal Medicine; Internal Medicine Nephrology; Nurse Practitioner Family; ADMIT Internal Medicine
DX: K56.609 Unspecified intestinal obstruction, unspecified as to partial versus complete obstruction (principal); N17.0 Acute kidney failure with tubular necrosis; E44.0 Moderate protein-calorie malnutrition; N18.5 Chronic kidney disease, stage 5; I12.0 Hypertensive chronic kidney disease with stage 5 chronic kidney disease or end stage renal disease; Q26.8 Other congenital malformations of great veins; D64.9 Anemia, unspecified; M08.00 Unspecified juvenile rheumatoid arthritis of unspecified site; E87.8 Other disorders of electrolyte and fluid balance, not elsewhere classified; E83.41 Hypermagnesemia; I77.6 Arteritis, unspecified; G47.33 Obstructive sleep apnea (adult) (pediatric); D72.829 Elevated white blood cell count, unspecified; E86.0 Dehydration; R73.9 Hyperglycemia, unspecified; Z96.649 Presence of unspecified artificial hip joint; E83.39 Other disorders of phosphorus metabolism; R31.9 Hematuria, unspecified; G43.909 Migraine, unspecified, not intractable, without status migrainosus; R80.9 Proteinuria, unspecified; Z86.718 Personal history of other venous thrombosis and embolism; Z86.79 Personal history of other diseases of the circulatory system; Z99.89 Dependence on other enabling machines and devices; Z82.49 Family history of ischemic heart disease and other diseases of the circulatory system; Z79.899 Other long term (current) drug therapy; Z68.21 Body mass index [BMI] 21.0-21.9, adult

== ENCOUNTER → 2020-03-26 | Outpatient (CLI) | payer OTHER ==
[~2020-03-26] MED LIST changes: +AMLODIPINE BESY10 MG PO; +LIPITOR40 MG PO
== END ==
LOC: US 15:36
DX: M79.89 Other specified soft tissue disorders (principal)

== ENCOUNTER → 2020-04-10 | Outpatient (CLI) | payer OTHER | END | disposition home or self-care (01) | LOC: COVID19 00:48 | DX: Z01.818 Encounter for other preprocedural examination (principal); Z11.59 Encounter for screening for other viral diseases ==

== ENCOUNTER → 2020-04-16 | Day surgery (SDC) | payer OTHER ==
[2020-04-10 14:05] VITALS: BP 137/76
[~2020-04-16] VITALS: Ht 162.5 cm; Wt 53.5 kg
[~2020-04-16] MED LIST changes: +COLACE100 MG PO; +NORCO 5-325 TA1 EACH PO; +ZOFRAN4 MG PO
[2020-04-16 12:07] VITALS: BP 109/64
[2020-04-16 12:22] VITALS: BP 127/64
[2020-04-16 12:37] VITALS: BP 121/60
[2020-04-16 12:45] VITALS: BP 113/62
[2020-04-16 12:52] VITALS: BP 121/60
[2020-04-16 13:07] VITALS: BP 122/71
== END | disposition home or self-care (01) ==
LOC: SDC 04-10 14:00
DX: Z45.2 Encounter for adjustment and management of vascular access device (principal); I12.9 Hypertensive chronic kidney disease with stage 1 through stage 4 chronic kidney disease, or unspecified chronic kidney disease; N18.9 Chronic kidney disease, unspecified; K56.609 Unspecified intestinal obstruction, unspecified as to partial versus complete obstruction; N17.0 Acute kidney failure with tubular necrosis; K21.9 Gastro-esophageal reflux disease without esophagitis; G43.909 Migraine, unspecified, not intractable, without status migrainosus; Z98.890 Other specified postprocedural states; Z79.899 Other long term (current) drug therapy

== ENCOUNTER → 2020-05-04 | Outpatient (CLI) | payer OTHER ==
[2020-05-04 09:45] LABS: CHOLESTEROL 184 mg/dL (<200); HDL CHOLESTEROL 63 mg/dl (40-60); LDL CHOLESTEROL 101 mg/dL (9-159); TRIGLYCERIDES 98 mg/dl (<150); VLDL CHOLESTEROL 20 mg/dL (6-40)
== END | disposition home or self-care (01) ==
LOC: LAB 08:06
PROVIDERS: Specialist
DX: I77.6 Arteritis, unspecified (principal); D68.9 Coagulation defect, unspecified; M13.0 Polyarthritis, unspecified; D68.61 Antiphospholipid syndrome; E78.5 Hyperlipidemia, unspecified

== ENCOUNTER → 2020-07-17 | Outpatient (CLI) | payer OTHER ==
[2020-07-17 11:44] LABS: BASO % 0.8 % (0.0-1.0); EOS # 0.2 10*3/uL (0.0-0.4); EOS % 5.1 % (1.0-4.0); LYMPH # 1.3 10*3/uL (1.3-4.4); LYMPH % 33.9 % (27.0-41.0); MEAN CELL VOLUME 96.7 fl (81.0-99.0); MEAN CORPUSCULAR HGB 31.1 pg (27.0-31.0); MEAN PLATELET VOLUME 9.4 fl (9.6-12.3); MONO # 0.2 10*3/uL (0.1-1.0); MONO % 6.1 % (3.0-9.0); NEUT # 2.1 10*3/uL (2.3-7.9); NEUT % 53.8 % (47.0-73.0); PLATELET COUNT AUTOMATED 251 10*3/uL (130-400); RED BLOOD COUNT 3.31 10*6/uL (4.10-5.10); RED CELL DISTRI WIDTH 12.8 % (0-14.5); WHITE BLOOD COUNT 3.9 10*3/uL (4.8-10.8)
[2020-07-17 11:47] LABS: MEAN CORPUSCULAR HGB CONC 32.2 g/dl (33.0-37.0)
[2020-07-17 12:16] LABS: ALBUMIN 3.4 gm/dl (3.1-4.5); CREATININE 4.33 mg/dL (0.55-1.02); POTASSIUM 4.7 mmol/L (3.5-5.1); TOTAL PROTEIN 7.2 gm/dL (6.4-8.2)
== END | disposition home or self-care (01) ==
LOC: LAB 11:29
PROVIDERS: ATTEND Internal Medicine Nephrology
DX: N18.4 Chronic kidney disease, stage 4 (severe) (principal)

== ENCOUNTER → 2020-10-13 | Outpatient (CLI) | payer OTHER ==
[~2020-10-13] MED LIST changes: +CIPRO250 MG PO; +DOXYCYCLINE100 M3 PO
[2020-10-13 14:06] LABS: BILIRUBIN Negative (Negative); BLOOD 1+ (Negative); CLARITY Clear (Clear); COLOR Yellow (Yellow); GLUCOSE Negative (Negative); KETONE Negative (Negative); LEUKO ESTERASE Trace (Negative); NITRITE Negative (Negative); PH 7.5 (4.5-8.0); UROBILINOGEN 0.2 E.U./dl (0.0-1.0)
[2020-10-13 14:06] LABS: BASO # 0.1 10*3/uL (0.0-0.1); BASO % 1.3 % (0.0-1.0); EOS # 0.3 10*3/uL (0.0-0.4); EOS % 5.6 % (1.0-4.0); HEMATOCRIT 33.2 % (37.0-47.0); LYMPH # 1.5 10*3/uL (1.3-4.4); LYMPH % 26.4 % (27.0-41.0); MEAN CELL VOLUME 97.4 fl (81.0-99.0); MEAN CORPUSCULAR HGB 31.1 pg (27.0-31.0); MEAN CORPUSCULAR HGB CONC 31.9 g/dl (33.0-37.0); MEAN PLATELET VOLUME 9.4 fl (9.6-12.3); MONO # 0.4 10*3/uL (0.1-1.0); MONO % 6.5 % (3.0-9.0); NEUT # 3.3 10*3/uL (2.3-7.9); NEUT % 59.1 % (47.0-73.0); PLATELET COUNT AUTOMATED 257 10*3/uL (130-400); RED BLOOD COUNT 3.41 10*6/uL (4.10-5.10); RED CELL DISTRI WIDTH 12.7 % (0-14.5); WHITE BLOOD COUNT 5.6 10*3/uL (4.8-10.8)
[2020-10-13 14:18] LABS: ALBUMIN 3.7 gm/dl (3.1-4.5); CREATININE 4.32 mg/dL (0.55-1.02); POTASSIUM 5.1 mmol/L (3.5-5.1)
[2020-10-13 14:19] LABS: BACTERIA TRACE; RBC 21-30 rbc/hpf (0-2); URINE CREATININE RANDOM 47.9 mg/dL
== END | disposition home or self-care (01) ==
LOC: LAB 13:38
PROVIDERS: ATTEND Internal Medicine Nephrology
DX: N18.5 Chronic kidney disease, stage 5 (principal)

== ENCOUNTER 2020-10-21 14:32 | Emergency (ER) | payer OTHER ==
[~2020-10-21] VITALS: Ht 162.5 cm; Wt 63.5 kg
[~2020-10-21 14:32] MED LIST changes: -CIPRO250 MG PO; -DOXYCYCLINE100 M3 PO
[2020-10-21] MEDS ORDERED: CIPRO250 MG PO (18:18)
[2020-10-21] MEDS ORDERED: DOXYCYCLINE100 M3 PO (18:18)
== END 2020-10-21 15:28 | disposition home or self-care (01) ==
LOC: ED 14:32
DX: T85.611A Breakdown (mechanical) of intraperitoneal dialysis catheter, initial encounter (principal); N18.6 End stage renal disease; Z98.890 Other specified postprocedural states; Z79.899 Other long term (current) drug therapy; Z99.2 Dependence on renal dialysis; Y92.89 Other specified places as the place of occurrence of the external cause

== ENCOUNTER → 2020-11-26 | Outpatient (CLI) | payer OTHER ==
[~2020-11-26] MED LIST changes: +CIPRO250 MG PO; +DOXYCYCLINE100 M3 PO
== END | disposition home or self-care (01) ==
LOC: US 11-09 14:00
PROVIDERS: ATTEND Physician Assistant Medical
DX: E04.1 Nontoxic single thyroid nodule (principal)

== ENCOUNTER → 2020-12-15 | Outpatient (CLI) | payer OTHER ==
[2020-12-15 11:17] LABS: BASO # 0.1 10*3/uL (0.0-0.1); BASO % 1.6 % (0.0-1.0); EOS # 0.2 10*3/uL (0.0-0.4); EOS % 5.2 % (1.0-4.0); LYMPH % 28.5 % (27.0-41.0); MEAN CORPUSCULAR HGB 31.2 pg (27.0-31.0); MEAN CORPUSCULAR HGB CONC 32.2 g/dl (33.0-37.0); MEAN PLATELET VOLUME 9.2 fl (9.6-12.3); MONO # 0.2 10*3/uL (0.1-1.0); MONO % 6.6 % (3.0-9.0); NEUT # 2.1 10*3/uL (2.3-7.9); NEUT % 57.8 % (47.0-73.0); PLATELET COUNT AUTOMATED 280 10*3/uL (130-400); RED CELL DISTRI WIDTH 12.5 % (0-14.5); WHITE BLOOD COUNT 3.7 10*3/uL (4.8-10.8)
[2020-12-15 11:43] LABS: ALBUMIN 3.5 gm/dl (3.1-4.5); CREATININE 4.71 mg/dL (0.55-1.02)
[2020-12-15 11:57] LABS: THYROID STIM HORMONE (HS) 1.64 uIU/ml (0.358-4.75)
[2020-12-15 13:26] LABS: FERRITIN 113.8 ng/mL (10.0-291.0)
== END | disposition home or self-care (01) ==
LOC: LAB 10:42
PROVIDERS: Physician Assistant Medical; ATTEND Internal Medicine Nephrology
DX: N18.5 Chronic kidney disease, stage 5 (principal); E04.1 Nontoxic single thyroid nodule

== ENCOUNTER → 2021-03-12 | Outpatient (CLI) | payer OTHER ==
[2021-03-12 11:18] LABS: BASO # 0.1 10*3/uL (0.0-0.1); BASO % 1.3 % (0.0-1.0); EOS # 0.2 10*3/uL (0.0-0.4); EOS % 4.8 % (1.0-4.0); HEMATOCRIT 29.6 % (37.0-47.0); LYMPH # 1.2 10*3/uL (1.3-4.4); LYMPH % 29.4 % (27.0-41.0); MEAN CELL VOLUME 96.7 fl (81.0-99.0); MEAN CORPUSCULAR HGB CONC 32.1 g/dl (33.0-37.0); MEAN PLATELET VOLUME 9.4 fl (9.6-12.3); MONO # 0.3 10*3/uL (0.1-1.0); NEUT # 2.3 10*3/uL (2.3-7.9); NEUT % 57.2 % (47.0-73.0); PLATELET COUNT AUTOMATED 263 10*3/uL (130-400); RED BLOOD COUNT 3.06 10*6/uL (4.10-5.10); RED CELL DISTRI WIDTH 12.9 % (0-14.5)
[2021-03-12 11:30] LABS: ALBUMIN 3.3 gm/dl (3.1-4.5); CREATININE 5.66 mg/dL (0.55-1.02); POTASSIUM 5.1 mmol/L (3.5-5.1)
[2021-03-12 12:43] LABS: FERRITIN 115.6 ng/mL (10.0-291.0); PTH INTACT 152.2 pg/mL (18.5-88.0)
== END | disposition home or self-care (01) ==
LOC: LAB 10:32
PROVIDERS: ATTEND Internal Medicine Nephrology
DX: N18.5 Chronic kidney disease, stage 5 (principal); D64.9 Anemia, unspecified

== ENCOUNTER → 2021-04-14 | Outpatient (CLI) | payer OTHER ==
[2021-04-14 12:42] LABS: BASO # 0.1 10*3/uL (0.0-0.1); BASO % 1.5 % (0.0-1.0); EOS # 0.2 10*3/uL (0.0-0.4); EOS % 4.7 % (1.0-4.0); HEMATOCRIT 28.8 % (37.0-47.0); LYMPH # 0.9 10*3/uL (1.3-4.4); MEAN CELL VOLUME 95.4 fl (81.0-99.0); MEAN CORPUSCULAR HGB 31.1 pg (27.0-31.0); MEAN CORPUSCULAR HGB CONC 32.6 g/dl (33.0-37.0); MEAN PLATELET VOLUME 8.9 fl (9.6-12.3); MONO # 0.3 10*3/uL (0.1-1.0); MONO % 8.2 % (3.0-9.0); NEUT # 2.5 10*3/uL (2.3-7.9); NEUT % 62.6 % (47.0-73.0); PLATELET COUNT AUTOMATED 246 10*3/uL (130-400); RED BLOOD COUNT 3.02 10*6/uL (4.10-5.10); RED CELL DISTRI WIDTH 12.9 % (0-14.5)
[2021-04-14 12:57] LABS: ALBUMIN 3.5 gm/dl (3.1-4.5); POTASSIUM 5.3 mmol/L (3.5-5.1)
[2021-04-14 12:59] LABS: CREATININE 6.36 mg/dL (0.55-1.02); TOTAL PROTEIN 7.2 gm/dL (6.4-8.2)
== END | disposition home or self-care (01) ==
LOC: LAB 12:24
PROVIDERS: ATTEND Internal Medicine Hematology & Oncology
DX: I82.509 Chronic embolism and thrombosis of unspecified deep veins of unspecified lower extremity (principal)

== ENCOUNTER → 2021-05-27 | Outpatient (CLI) | payer OTHER ==
[2021-05-27 15:34] LABS: BASO % 0.9 % (0.0-1.0); EOS # 0.2 10*3/uL (0.0-0.4); EOS % 3.5 % (1.0-4.0); HEMATOCRIT 27.6 % (37.0-47.0); LYMPH # 1.2 10*3/uL (1.3-4.4); LYMPH % 26.3 % (27.0-41.0); MEAN CELL VOLUME 95.8 fl (81.0-99.0); MEAN CORPUSCULAR HGB 31.6 pg (27.0-31.0); MEAN PLATELET VOLUME 8.9 fl (9.6-12.3); MONO # 0.4 10*3/uL (0.1-1.0); MONO % 7.9 % (3.0-9.0); NEUT # 2.8 10*3/uL (2.3-7.9); NEUT % 61.2 % (47.0-73.0); PLATELET COUNT AUTOMATED 278 10*3/uL (130-400); RED BLOOD COUNT 2.88 10*6/uL (4.10-5.10); RED CELL DISTRI WIDTH 12.9 % (0-14.5); WHITE BLOOD COUNT 4.6 10*3/uL (4.8-10.8)
[2021-05-27 15:49] LABS: ALBUMIN 3.3 gm/dl (3.1-4.5); CREATININE 6.23 mg/dL (0.55-1.02); POTASSIUM 5.2 mmol/L (3.5-5.1)
[2021-05-27 16:10] LABS: FERRITIN 141.6 ng/mL (10.0-291.0); PTH INTACT 207.4 pg/mL (18.5-88.0)
== END | disposition home or self-care (01) ==
LOC: LAB 15:08
PROVIDERS: Internal Medicine Nephrology; ATTEND Internal Medicine Hematology & Oncology
DX: I82.509 Chronic embolism and thrombosis of unspecified deep veins of unspecified lower extremity (principal); I10 Essential (primary) hypertension; D64.9 Anemia, unspecified

== ENCOUNTER → 2021-07-05 | Outpatient (CLI) | payer OTHER ==
[2021-07-05 13:21] LABS: BASO # 0.1 10*3/uL (0.0-0.1); BASO % 1.5 % (0.0-1.0); EOS # 0.2 10*3/uL (0.0-0.4); EOS % 5.3 % (1.0-4.0); HEMATOCRIT 29.8 % (37.0-47.0); LYMPH # 1.2 10*3/uL (1.3-4.4); LYMPH % 30.8 % (27.0-41.0); MEAN CELL VOLUME 97.1 fl (81.0-99.0); MEAN CORPUSCULAR HGB 31.6 pg (27.0-31.0); MEAN CORPUSCULAR HGB CONC 32.6 g/dl (33.0-37.0); MEAN PLATELET VOLUME 9.2 fl (9.6-12.3); MONO # 0.3 10*3/uL (0.1-1.0); MONO % 6.6 % (3.0-9.0); NEUT # 2.2 10*3/uL (2.3-7.9); NEUT % 55.5 % (47.0-73.0); PLATELET COUNT AUTOMATED 224 10*3/uL (130-400); RED BLOOD COUNT 3.07 10*6/uL (4.10-5.10); RED CELL DISTRI WIDTH 13.6 % (0-14.5); WHITE BLOOD COUNT 3.9 10*3/uL (4.8-10.8)
[2021-07-05 13:36] LABS: CREATININE 7.58 mg/dL (0.55-1.02); POTASSIUM 5.1 mmol/L (3.5-5.1)
[2021-07-05 13:46] LABS: FREE T4 0.92 ng/dl (0.76-1.46); THYROID STIM HORMONE (HS) 0.459 uIU/ml (0.358-4.75)
[2021-07-05 14:23] LABS: PTH INTACT 156.2 pg/mL (18.5-88.0); VITAMIN D, 25-HYDROXY 42.1 ng/mL (30-100)
[2021-07-05 14:24] LABS: FERRITIN 117.1 ng/mL (10.0-291.0)
== END | disposition home or self-care (01) ==
LOC: LAB 13:00
PROVIDERS: Internal Medicine Nephrology; Physician Assistant Medical; ATTEND Internal Medicine Hematology & Oncology
DX: I82.509 Chronic embolism and thrombosis of unspecified deep veins of unspecified lower extremity (principal); N18.5 Chronic kidney disease, stage 5; D63.1 Anemia in chronic kidney disease

== ENCOUNTER → 2021-08-06 | Outpatient (CLI) | payer OTHER ==
[2021-08-06 10:41] LABS: BASO # 0.1 10*3/uL (0.0-0.1); BASO % 1.5 % (0.0-1.0); EOS # 0.3 10*3/uL (0.0-0.4); EOS % 6.2 % (1.0-4.0); HEMATOCRIT 30.6 % (37.0-47.0); LYMPH # 1.1 10*3/uL (1.3-4.4); LYMPH % 26.5 % (27.0-41.0); MEAN CORPUSCULAR HGB 31.7 pg (27.0-31.0); MEAN PLATELET VOLUME 9.3 fl (9.6-12.3); MONO # 0.3 10*3/uL (0.1-1.0); MONO % 6.7 % (3.0-9.0); NEUT # 2.4 10*3/uL (2.3-7.9); NEUT % 58.9 % (47.0-73.0); PLATELET COUNT AUTOMATED 227 10*3/uL (130-400); RED BLOOD COUNT 3.09 10*6/uL (4.10-5.10); RED CELL DISTRI WIDTH 13.5 % (0-14.5)
[2021-08-06 11:09] LABS: CREATININE 8.58 mg/dL (0.55-1.02); POTASSIUM 5.4 mmol/L (3.5-5.1)
== END | disposition home or self-care (01) ==
LOC: LAB 10:14
PROVIDERS: ATTEND Internal Medicine Nephrology
DX: I82.509 Chronic embolism and thrombosis of unspecified deep veins of unspecified lower extremity (principal); N18.9 Chronic kidney disease, unspecified; D63.1 Anemia in chronic kidney disease

== ENCOUNTER → 2021-08-09 | Outpatient (CLI) | payer OTHER ==
[2021-08-09 11:24] LABS: HEMATOCRIT 32.8 % (37.0-47.0); MEAN CELL VOLUME 108.6 fl (81.0-99.0); MEAN CORPUSCULAR HGB 32.8 pg (27.0-31.0); MEAN CORPUSCULAR HGB CONC 30.2 g/dl (33.0-37.0); MEAN PLATELET VOLUME 9.4 fl (9.6-12.3); PLATELET COUNT AUTOMATED 224 10*3/uL (130-400); RED BLOOD COUNT 3.02 10*6/uL (4.10-5.10); RED CELL DISTRI WIDTH 14.7 % (0-14.5); WHITE BLOOD COUNT 3.5 10*3/uL (4.8-10.8)
[2021-08-09 11:39] LABS: CREATININE 8.92 mg/dL (0.55-1.02); POTASSIUM 5.6 mmol/L (3.5-5.1)
[2021-08-09 11:40] LABS: ATYPICAL LYMPHS 1 % (0-0); BASOPHILS 2 % (0-1); TOTAL CELLS COUNTED 100 #CELLS
[2021-08-09 11:41] LABS: OVALOCYTES FEW; PLATELET SUFFICIENCY NORMAL (NORMAL)
== END | disposition home or self-care (01) ==
LOC: LAB 11:04
PROVIDERS: ATTEND Internal Medicine Nephrology
DX: N18.5 Chronic kidney disease, stage 5 (principal)

== ENCOUNTER → 2021-08-14 | Outpatient (CLI) | payer OTHER ==
[2021-08-14 10:35] LABS: ALBUMIN 3.2 gm/dl (3.1-4.5); CREATININE 9.83 mg/dL (0.55-1.02); POTASSIUM 4.4 mmol/L (3.5-5.1)
== END | disposition home or self-care (01) ==
LOC: LAB 09:57
PROVIDERS: ATTEND Specialist
DX: E87.5 Hyperkalemia (principal); N18.5 Chronic kidney disease, stage 5

== ENCOUNTER → 2021-08-23 | Outpatient (CLI) | payer OTHER ==
[2021-08-23 14:33] LABS: BASO % 0.5 % (0.0-1.0); EOS # 0.2 10*3/uL (0.0-0.4); EOS % 3.7 % (1.0-4.0); HEMATOCRIT 28.3 % (37.0-47.0); LYMPH # 0.9 10*3/uL (1.3-4.4); LYMPH % 20.8 % (27.0-41.0); MEAN CELL VOLUME 98.6 fl (81.0-99.0); MEAN CORPUSCULAR HGB 31.7 pg (27.0-31.0); MEAN CORPUSCULAR HGB CONC 32.2 g/dl (33.0-37.0); MEAN PLATELET VOLUME 9.8 fl (9.6-12.3); MONO # 0.4 10*3/uL (0.1-1.0); MONO % 9.6 % (3.0-9.0); NEUT # 2.9 10*3/uL (2.3-7.9); NEUT % 65.2 % (47.0-73.0); PLATELET COUNT AUTOMATED 195 10*3/uL (130-400); RED BLOOD COUNT 2.87 10*6/uL (4.10-5.10); RED CELL DISTRI WIDTH 13.7 % (0-14.5); WHITE BLOOD COUNT 4.4 10*3/uL (4.8-10.8)
[2021-08-23 14:44] LABS: CREATININE 8.39 mg/dL (0.55-1.02); POTASSIUM 4.8 mmol/L (3.5-5.1)
== END | disposition home or self-care (01) ==
LOC: LAB 14:05
PROVIDERS: ATTEND Specialist
DX: J90 Pleural effusion, not elsewhere classified (principal); N18.5 Chronic kidney disease, stage 5; D63.1 Anemia in chronic kidney disease; E87.5 Hyperkalemia; R76.12 Nonspecific reaction to cell mediated immunity measurement of gamma interferon antigen response without active tuberculosis

== ENCOUNTER 2021-09-26 14:14 | Emergency (ER) | payer OTHER ==
[~2021-09-26] VITALS: Ht 162.5 cm; Wt 49.9 kg
== END 2021-09-26 17:05 | disposition left against medical advice (07) ==
LOC: ED 14:14
DX: Z53.21 Procedure and treatment not carried out due to patient leaving prior to being seen by health care provider (principal)

== ENCOUNTER 2021-09-28 14:35 | Emergency (ER) | payer OTHER ==
[~2021-09-28] VITALS: Ht 162.5 cm; Wt 49.0 kg
[2021-09-28 15:36] LABS: BASO % 0.3 % (0.0-1.0); EOS # 0.1 10*3/uL (0.0-0.4); EOS % 1.9 % (1.0-4.0); HEMATOCRIT 28.9 % (37.0-47.0); LYMPH # 0.9 10*3/uL (1.3-4.4); LYMPH % 24.6 % (27.0-41.0); MEAN CELL VOLUME 95.1 fl (81.0-99.0); MEAN CORPUSCULAR HGB 30.9 pg (27.0-31.0); MEAN CORPUSCULAR HGB CONC 32.5 g/dl (33.0-37.0); MEAN PLATELET VOLUME 9.9 fl (9.6-12.3); MONO # 0.3 10*3/uL (0.1-1.0); MONO % 9.3 % (3.0-9.0); NEUT # 2.3 10*3/uL (2.3-7.9); NEUT % 63.4 % (47.0-73.0); PLATELET COUNT AUTOMATED 184 10*3/uL (130-400); RED BLOOD COUNT 3.04 10*6/uL (4.10-5.10); RED CELL DISTRI WIDTH 13.1 % (0-14.5); WHITE BLOOD COUNT 3.7 10*3/uL (4.8-10.8)
[2021-09-28 15:50] LABS: ALBUMIN 2.9 gm/dl (3.1-4.5); CREATININE 7.31 mg/dL (0.55-1.02); POTASSIUM 5.1 mmol/L (3.5-5.1); TOTAL PROTEIN 6.6 gm/dL (6.4-8.2)
[2021-09-28] MEDS ORDERED: REGLAN5 MG PO (17:43)
== END 2021-09-28 17:48 | disposition home or self-care (01) ==
LOC: ED 14:35
PROVIDERS: Physician Assistant
DX: U07.1 COVID-19 (principal)

== ENCOUNTER → 2021-12-27 | Outpatient (CLI) | payer OTHER ==
[~2021-12-27] MED LIST changes: +REGLAN5 MG PO
== END | disposition home or self-care (01) ==
LOC: US 13:00
PROVIDERS: ATTEND Physician Assistant Medical
DX: E04.2 Nontoxic multinodular goiter (principal); E03.9 Hypothyroidism, unspecified

== ENCOUNTER → 2022-12-30 | Outpatient (CLI) | payer OTHER | END | disposition home or self-care (01) | LOC: LAB 13:12 | PROVIDERS: ATTEND Orthopaedic Surgery | DX: N18.6 End stage renal disease (principal); E21.3 Hyperparathyroidism, unspecified; M62.81 Muscle weakness (generalized); I89.0 Lymphedema, not elsewhere classified; Z99.2 Dependence on renal dialysis; Z96.642 Presence of left artificial hip joint; E55.9 Vitamin D deficiency, unspecified; M81.0 Age-related osteoporosis without current pathological fracture; M25.552 Pain in left hip ==

== ENCOUNTER 2023-01-08 01:39 | Emergency (ER) | payer OTHER ==
[~2023-01-08] VITALS: Ht 162.5 cm; Wt 59.0 kg
[2023-01-08 02:34] LABS: BASO % 0.3 % (0.0-1.0); EOS # 0.3 10*3/uL (0.0-0.4); EOS % 3.3 % (1.0-4.0); HEMATOCRIT 31.1 % (37.0-47.0); LYMPH # 1.2 10*3/uL (1.3-4.4); LYMPH % 14.6 % (27.0-41.0); MEAN CELL VOLUME 96.3 fl (81.0-99.0); MEAN CORPUSCULAR HGB 32.2 pg (27.0-31.0); MEAN CORPUSCULAR HGB CONC 33.4 g/dl (33.0-37.0); MEAN PLATELET VOLUME 9.3 fl (9.6-12.3); MONO # 0.5 10*3/uL (0.1-1.0); MONO % 5.8 % (3.0-9.0); NEUT % 75.4 % (47.0-73.0); PLATELET COUNT AUTOMATED 277 10*3/uL (130-400); RED BLOOD COUNT 3.23 10*6/uL (4.10-5.10); RED CELL DISTRI WIDTH 13.1 % (0-14.5); WHITE BLOOD COUNT 7.9 10*3/uL (4.8-10.8)
[2023-01-08] MEDS ORDERED: Ondansetron4 MG PO (03:02)
[2023-01-08 03:07] LABS: POTASSIUM 4.2 mmol/L (3.4-5.1); TOTAL PROTEIN 7.2 gm/dL (6.0-8.0)
== END 2023-01-08 03:37 | disposition home or self-care (01) ==
LOC: ED 01:39
PROVIDERS: Emergency Medicine
DX: R19.7 Diarrhea, unspecified (principal); G43.909 Migraine, unspecified, not intractable, without status migrainosus; I10 Essential (primary) hypertension; Z90.710 Acquired absence of both cervix and uterus; Z98.890 Other specified postprocedural states; M19.90 Unspecified osteoarthritis, unspecified site; Z20.822 Contact with and (suspected) exposure to COVID-19

== ENCOUNTER → 2023-01-13 | Outpatient (CLI) | payer OTHER ==
[~2023-01-13] MED LIST changes: +Ondansetron4 MG PO
== END | disposition home or self-care (01) ==
LOC: LAB 14:22
PROVIDERS: ATTEND Specialist
DX: R19.7 Diarrhea, unspecified (principal)

== ENCOUNTER → 2023-01-16 | Outpatient (CLI) | payer OTHER | END | disposition home or self-care (01) | LOC: US 01:55 | PROVIDERS: ATTEND Specialist | DX: N18.6 End stage renal disease (principal); N94.89 Other specified conditions associated with female genital organs and menstrual cycle; N13.30 Unspecified hydronephrosis; R33.9 Retention of urine, unspecified ==

== ENCOUNTER → 2023-03-24 | Outpatient (CLI) | payer MEDICARE | END | disposition home or self-care (01) | LOC: LAB 10:19 | PROVIDERS: ATTEND Physician Assistant Medical | DX: E55.9 Vitamin D deficiency, unspecified (principal); E04.2 Nontoxic multinodular goiter; E06.3 Autoimmune thyroiditis; N19 Unspecified kidney failure ==

== ENCOUNTER → 2023-06-09 | Outpatient (CLI) | payer OTHER | END | disposition home or self-care (01) | LOC: LAB 10:47 | PROVIDERS: ATTEND Physician Assistant Medical | DX: E04.2 Nontoxic multinodular goiter (principal); E06.3 Autoimmune thyroiditis; N19 Unspecified kidney failure; E55.9 Vitamin D deficiency, unspecified; M81.0 Age-related osteoporosis without current pathological fracture ==

== ENCOUNTER → 2023-12-04 | Outpatient (CLI) | payer OTHER ==
[2023-12-04 13:46] LABS: FREE T4 1.01 ng/dl (0.89-1.76); POTASSIUM 4.5 mmol/L (3.4-5.1); TOTAL PROTEIN 6.8 gm/dL (6.0-8.0)
== END | disposition home or self-care (01) ==
LOC: LAB 12:54
PROVIDERS: ATTEND Physician Assistant Medical
DX: M81.0 Age-related osteoporosis without current pathological fracture (principal); E04.2 Nontoxic multinodular goiter; E06.3 Autoimmune thyroiditis; N19 Unspecified kidney failure; E55.9 Vitamin D deficiency, unspecified

== ENCOUNTER → 2024-01-25 | Outpatient (CLI) | payer MEDICARE | END | disposition home or self-care (01) | LOC: US 02:18 | PROVIDERS: ATTEND Physician Assistant Medical | DX: E04.2 Nontoxic multinodular goiter (principal) ==

== ENCOUNTER → 2024-12-03 | Outpatient (CLI) | payer MEDICARE ==
[2024-12-03 11:37] LABS: POTASSIUM 4.7 mmol/L (3.4-5.1); TOTAL PROTEIN 6.7 gm/dL (6.0-8.0)
[2024-12-03 11:40] LABS: FREE T4 1.16 ng/dl (0.89-1.76)
== END | disposition home or self-care (01) ==
LOC: LAB 00:42 → US 10:00
PROVIDERS: ATTEND Physician Assistant Medical
DX: E04.2 Nontoxic multinodular goiter (principal); E06.3 Autoimmune thyroiditis; M81.0 Age-related osteoporosis without current pathological fracture; N19 Unspecified kidney failure; E55.9 Vitamin D deficiency, unspecified